=== PATIENT | male | born 1995 | race Caucasian/White ===

== ENCOUNTER 2017-04-10 21:31 | Inpatient (IN) | payer MEDICAID, OTHER ==
[~2017-04-10] VITALS: Ht 180.3 cm; Wt 82.6 kg
[2017-04-10] MEDS ORDERED: ACTIVATED CHARCOAL 50 GM/240 ML SUSPENSION ONE (21:44)
[2017-04-10] MEDS ORDERED: SODIUM CHLORIDE 0.9% 1,000 ML IV ONE (21:45)
[2017-04-10] MEDS ORDERED: ACTIVATED CHARCOAL 50 GM/240 ML SUSPENSION PO ONE (21:45)
[2017-04-10 21:57] LABS: BASOPHILS # (AUTO) 0.03 K/uL (0.00-0.20); BASOPHILS % (AUTO) 0.3 % (0.0-2.0); EOSINOPHILS # (AUTO) 0.05 K/uL (0.00-0.70); EOSINOPHILS % (AUTO) 0.57 % (1.0-6.0); HEMATOCRIT 45.6 % (41-53); HEMOGLOBIN 15.6 g/dL (13.5-17.5); LYMPHOCYTES # (AUTO) 1.1 K/uL (1.0-4.8); LYMPHOCYTES % (AUTO) 11.6 % (22.0-44.0); MEAN CORPUSCULAR HEMOGLOBIN 30.5 pg (26.0-34.0); MEAN CORPUSCULAR HGB CONC 34.1 G/dL (31.0-37.0); MEAN CORPUSCULAR VOLUME 90 fL (80-100); MONOCYTES # (AUTO) 0.6 K/uL (0.1-1.0); NEUTROPHILS # (AUTO) 7.5 K/uL (1.8-7.7); NEUTROPHILS % (AUTO) 81.5 % (40.0-70.0); PLATELET COUNT (AUTO) 233 K/uL (150-450); WHITE BLOOD COUNT (AUTO) 9.2 K/uL (4.5-11.0)
[2017-04-10 22:09] LABS: ANION GAP 12 mmol/L (8-16); CALCIUM, TOTAL 8.7 mg/dL (8.8-10.5); CARBON DIOXIDE 26 mmol/L (22-29); CHLORIDE 101 mmol/L (98-107); CREATININE 0.87 mg/dL (0.60-1.30); GLOMERULAR FILTR. RATE CALC > 60 mL/min (>60); POTASSIUM 3.6 mmol/L (3.5-5.1); SODIUM SERUM 139 mmol/L (136-145); UREA NITROGEN, BLOOD 9 mg/dL (7-18)
[2017-04-10 22:12] LABS: ALBUMIN 4.1 g/dL (3.4-5.0); BILIRUBIN,TOTAL 0.7 mg/dL (0.1-1.0); TOTAL PROTEIN, SERUM 8.3 g/dL (6.4-8.2)
[2017-04-10 22:23] LABS: SALICYLATE < 2.8 mg/dL (2.8-20.0)
[2017-04-10 22:48] LABS: PROTHROMBIN TIME 10.7 SEC (9.4-11.6)
[2017-04-10 22:57] LABS: ALANINE AMINOTRANSFERASE 75 U/L (12-78); ASPARTATE AMINOTRANSFERASE 35 U/L (15-37)
[2017-04-10 23:11] LABS: ACETAMINOPHEN 84 mcg/mL (10-30)
[2017-04-11 02:46] VITALS: BP 154/74
[2017-04-11] MEDS ORDERED: LORazepam 2 MG TABLET PO PRN (10:15)
[2017-04-11] MEDS ORDERED: HALOPERIDOL 5 MG TABLET PO PRN (10:15)
[2017-04-11 12:29] VITALS: BP 161/96
[2017-04-11 17:05] VITALS: BP 134/76
[2017-04-12 08:00] VITALS: BP 137/78
[2017-04-12] MEDS: SERTRALINE HCL 50 MG TABLET PO SCH ×2 (12:37→12:40)
[2017-04-12] MEDS ORDERED: SERT50TA12 PO (15:48)
== END 2017-04-12 16:35 | disposition home or self-care (01) | DRG 750 ==
LOC: EMS 21:33 → 3EI 04-11 02:28
PROVIDERS: ADMIT Psychiatry & Neurology Psychiatry; ATTEND Psychiatry & Neurology Child & Adolescent Psychiatry
DX: F25.9 Schizoaffective disorder, unspecified (principal); F32.9 Major depressive disorder, single episode, unspecified; T39.1X2A Poisoning by 4-Aminophenol derivatives, intentional self-harm, initial encounter; F41.9 Anxiety disorder, unspecified; Z87.891 Personal history of nicotine dependence
CPT/HCPCS: 93005; 96360; 99285; G0480; G0481